=== PATIENT | female | born 1985 | race Hispanic/Latino ===

== ENCOUNTER 2016-10-08 16:34 | Emergency (ER) | payer OTHER, MEDICAID ==
--- NOTE | 2016-10-08 21:04 | XRay Report ---
FINAL REPORT PROCEDURE: XR WRIST 3 RT TECHNIQUE: RIGHT wrist radiographs, including AP, lateral, and oblique views. CPT 90334 HISTORY: impact,wrist pain, send for report COMPARISON: No prior studies are available for comparison. FINDINGS: Fracture (s) and/or Dislocation(s): None . Alignment: Normal . Joint space(s): Normal . Soft tissues: Normal . Bone mineralization: Normal . Foreign bodies: None . IMPRESSION: Normal Examination.
--- NOTE | 2016-10-08 21:04 | XRay Report ---
FINAL REPORT PROCEDURE: XR HAND 3 RT TECHNIQUE: RIGHT hand radiographs, AP, lateral, and oblique views. CPT 08756-KR HISTORY: impact, hand pain, send for report COMPARISON: No prior studies are available for comparison. FINDINGS: Fracture (s) and/or Dislocation(s): None . Alignment: Normal . Joint space(s): Normal . Soft tissues: Normal . Bone mineralization: Normal . Foreign bodies: None . IMPRESSION: Normal Examination .
[2016-10-08] MEDS ORDERED: MOTRIN PO ONE (21:22)
--- NOTE | 2016-10-08 21:22 | Emergency Department Report ---
Upper Extremity - HPI Chief Complaint: Extremity Injury, Upper Stated Complaint: RT WRIST SWOLLEN /PAIN Time Seen by Provider: 10/08/16 20:49 Upper Extremity: Right Wrist (drop TV on the right wrist pain and swelling), Right Hand (drop tv on rt hand with pain and swelling) Occurred When: 3 Days Mechanism: Hit with Object Severity: mild Symptoms: Yes Pain with Movement (right wrist and right hand), Yes Limited Range of Movement (right hand), Yes Swelling (right hand), No Deformity, No Numbness, No Weakness, No Bruising/Ecchymosis, No Laceration or Abrasion Other History: Patient here reports that she dropped a TV on her right hand 3 days ago and now she is. Right wrist and hand pain. She said her right hand on the thumb side is swollen and painful movement. Reports pain is reported 10 and denies taking any [id number] medication. Denies any numbness or tingling to extremities. ED Review of Systems ROS: Stated complaint: RT WRIST SWOLLEN /PAIN Other details as noted in HPI Comment: All other systems reviewed and negative Constitutional: denies: fever Respiratory: no symptoms reported Cardiovascular: denies: chest pain, palpitations, edema, syncope Gastrointestinal: denies: nausea, vomiting Musculoskeletal: joint swelling, arthralgia. denies: back pain Skin: denies: rash Neurological: denies: weakness, numbness, paresthesias, confusion, abnormal gait , vertigo ED Past Medical Hx - Past Medical History Previous Medical History?: Yes Hx Hypertension: Yes - Surgical History Past Surgical History?: No - Family History Family history: no significant - Social History Smoking Status: Never Smoker Substance Use Type: None - Medications Home Medications: Home Medications Medication Instructions Recorded Confirmed Last Taken Type Cyclobenzaprine [Flexeril 10mg] 10 mg PO TID PRN #30 tablet 01/24/14 Unknown Rx HYDROcodone/APAP 7.5-325 [[place] 1 each PO Q6HR PRN #20 tablet 01/24/14 Unknown Rx 7.5/325 mg] Acetaminophen/Codeine [Tylenol 1 tab PO Q6H PRN #15 tab 10/08/16 Unknown Rx /Codeine # 3 tab] Ibuprofen [Motrin 600 MG tab] 600 mg PO Q8H PRN #15 tablet 10/08/16 Unknown Rx Upper Extremity Exam - Exam General: Vital signs noted. No distress. Alert and acting appropriately. 31-year-old female well-nourished well-developed in no acute distress Head and Torso: No HEENT Abnormality, No Neck Tenderness, No Chest/Lungs Abnormality, No Abdominal Tenderness, No Back Tenderness Shoulder Exam: Yes Normal Range of Motion in Shoulder, No Shoulder Tenderness, No Clavicle Tenderness, No Shoulder Deformity, No AC Joint Tenderness Arm Exam: No Arm/Humerus Tenderness, No Arm Deformity Elbow: Yes Normal Range of Motion in Elbow, No Elbow Tenderness, No Elbow Deformity Forearm: No Forearm Tenderness, No Forearm Deformity, No Pain with Pronation, No Pain with Supination Wrist: Yes Wrist Tenderness, Yes Normal ROM in Wrist (patient reports pain with flexion and extension of right wrist.), No Wrist Deformity, No Snuffbox Tenderness, No Pain with Axial Thumb Compression Hand: Yes Hand Tenderness (right hand dorsal aspect first metacarpal area), Yes Normal ROM in Digit(s) (patient with full range of motion to hand and wrist but she reports that it's painful.), Yes Tendon Dysfunction, No Hand Deformity, No Digit Tenderness, No Digit(s) Deformity CMS Exam: Yes Normal Distal Pulses, Yes Normal Capillary Refill, Yes Normal Distal Sensation, No Broken Skin ED Course Vital Signs 10/08/16 18:25 Temperature 98.3 F Pulse Rate 95 H Respiratory 18 Rate Blood Pressure 152/89 [Right] O2 Sat by Pulse 99 Oximetry - Reevaluation(s) Reevaluation #1: 10/08/16 22:10 She received Motrin 800 mg in emergency room for pain. - Orthopedic Splinting/Casting Injury #1 Side: right Upper Extremity Injury Location: wrist, hand Upper Extremity Immobilizer: thumb spica Additional Comments: Patient with good color, movement, sensation in temperature to fingers of right hand splint placement. No neurovascular compromise. ED Medical Decision Making - Radiology Data Radiology results: report reviewed X-ray of right hand and wrist reveals no fracture or dislocation. - Medical Decision Making ED course:I Discussed the patient if she has a contusion of her hand with arthralgia with his pain to wrist and hand .I Discussed with her to follow-up with orthopedic doctor in 2 days for reevaluation. Patient received Motrin 800 mg in emergency room for pain. She was understanding of discharge diagnosis and treatment plan. Discharge home with prescription for Motrin and Tylenol 3. See procedure note for details on splinting Critical care attestation.: If time is entered above; I have spent that time in minutes in the direct care of this critically ill patient, excluding procedure time. ED Disposition Clinical Impression: Arthralgia of multiple sites Injury of hand, right Qualifiers: Encounter type: initial encounter Qualified Code(s): S69.91XA - Unspecified injury of right wrist, hand and finger(s), initial encounter Contusion of right hand Qualifiers: Encounter type: initial encounter Qualified Code(s): S60.221A - Contusion of right hand, initial encounter Disposition: DISCHARGED TO HOME OR SELFCARE Is pt being admited?: No Does the pt Need Aspirin: No Condition: Stable Instructions: Contusion in Adults (ED), Arthralgia (ED) Additional Instructions: Please keep splint on for 72 hours and follow-up with her doctor in 48 hours. Rest, ice, compress and elevate the area. Take Tylenol 3 as prescribed that please refrain from driving or operating heavy machinery. Prescriptions: Acetaminophen/Codeine [Tylenol /Codeine # 3 tab] 1 tab PO Q6H PRN #15 tab PRN Reason: Pain Ibuprofen [Motrin 600 MG tab] 600 mg PO Q8H PRN #15 tablet PRN Reason: Pain Referrals: ROEL SMART MD [Staff Physician] - 10/10/16 Forms: Work/School Release Form(ED)
[2016-10-08 22:33] VITALS: BP 147/88
== END 2016-10-08 22:39 | disposition home or self-care (01) ==
LOC: ED 16:34
DX: S69.91XA Unspecified injury of right wrist, hand and finger(s), initial encounter (principal); S60.221A Contusion of right hand, initial encounter; I10 Essential (primary) hypertension; W22.8XXA Striking against or struck by other objects, initial encounter; Y93.89 Activity, other specified; Y99.8 Other external cause status; Y92.89 Other specified places as the place of occurrence of the external cause